=== PATIENT | female | born 1985 | race Asian ===

== ENCOUNTER 2017-05-28 05:52 | Day surgery (SDC) | payer OTHER ==
[~2017-05-28] VITALS: Ht 158.8 cm; Wt 50.5 kg
[~2017-05-28 05:52] MED LIST: ALBU8HFA IH; FAMO20 PO; FLUT16H NASAL; LEVO500 PO; MOME13HF IH; MONT10TA21 PO
[2017-05-28] MEDS ORDERED: SODIUM CHLORIDE 0.9% 1,000 ML IV ONE ×2 (06:00→06:07)
[2017-05-28] MEDS ORDERED: BIOTINE PO (07:00)
[2017-05-28] MEDS ORDERED: PROP15DR OU (07:00)
[2017-05-28] MEDS ORDERED: METF500T7 PO (07:02)
[2017-05-28] MEDS ORDERED: LEVO50 PO (07:02)
[2017-05-28] MEDS ORDERED: BLOO-4 IN (07:02)
[2017-05-28 07:47] LABS: GLUCOSE,POINT OF CARE 85 MG/DL (70-110)
[2017-05-28] MEDS ORDERED: FentaNYL CITRATE-PF 100 MCG/2 ML VIAL ONE (07:57)
[2017-05-28] MEDS ORDERED: MIDAZOLAM HCL 2 MG/2 ML VIAL ONE (07:57)
[2017-05-28] MEDS ORDERED: MethylPREDNISolone SOD SUCC 125 MG/2 ML VIAL IVP ONE (08:45)
[2017-05-28] MEDS ORDERED: MethylPREDNISolone SOD SUCC 125 MG/2 ML VIAL ONE (09:34)
[2017-05-28] MEDS ORDERED: BENZOCAINE 20% 50 MCG/SPRAY 57 GM TP ONE (16:35)
[2017-05-28] MEDS ORDERED: LIDOCAINE HCL 2% 30 ML JELLY TP ONE (16:35)
[2017-05-28] MEDS ORDERED: LIDOCAINE HCL 4% 50 ML SOLUTION TP ONE (16:35)
[2017-05-28] MEDS ORDERED: OXYGEN THERAPY IH SCH (20:00)
== END 2017-05-28 10:30 | disposition home or self-care (01) ==
LOC: SURGERY 05:52
PROVIDERS: ATTEND Internal Medicine Critical Care Medicine
DX: J38.4 Edema of larynx (principal); B37.0 Candidal stomatitis; E11.9 Type 2 diabetes mellitus without complications; J45.909 Unspecified asthma, uncomplicated; D86.9 Sarcoidosis, unspecified; E03.9 Hypothyroidism, unspecified; F80.9 Developmental disorder of speech and language, unspecified; D72.819 Decreased white blood cell count, unspecified; D69.6 Thrombocytopenia, unspecified; E78.5 Hyperlipidemia, unspecified; Z88.2 Allergy status to sulfonamides; Z98.890 Other specified postprocedural states
CPT/HCPCS: 31623; 31624; 71010; 82962; 84703; 87015 ×2; 87070; 87101; 87205; 87220; 88108; 88312; 94640; J2250; J2930; J3010; J7030